=== PATIENT | male | born 1980 | race Caucasian/White ===

== ENCOUNTER 2019-04-28 23:13 | Emergency (ER) | payer MEDICAID ==
[~2019-04-28] VITALS: Ht 180.3 cm; Wt 71.7 kg
[2019-04-28 23:15] VITALS: BP 129/78
[2019-04-29] MEDS ORDERED: ALBUTEROL/IPRATROPIUM 2.5MG/0.5MG, 3 ML NPPB ONE (01:00)
[2019-04-29] MEDS ORDERED: IBUPROFEN 600 MG TABLET PO ONE (01:00)
[2019-04-29] MEDS ORDERED: ACETAMINOPHEN 500 MG TABLET PO ONE (01:00)
[2019-04-29] MEDS ORDERED: IBUPROFEN 600 MG TABLET ONE (01:16)
[2019-04-29] MEDS ORDERED: ACETAMINOPHEN 500 MG TABLET ONE (01:16)
--- NOTE | 2019-04-29 01:20 | NUR ---
BREAK RN: AWAITING DISCHARGE PAPERWORK AT THIS TIME
== END 2019-04-29 01:41 | disposition home or self-care (01) ==
LOC: ED 23:59
DX: J20.8 Acute bronchitis due to other specified organisms (principal); R51 Headache; R53.83 Other fatigue; K21.9 Gastro-esophageal reflux disease without esophagitis; F17.200 Nicotine dependence, unspecified, uncomplicated
CPT/HCPCS: 71045; 94640; 99283; J7620